=== PATIENT | female | born 1970 | race Caucasian/White ===

== ENCOUNTER → 2016-09-25 | Outpatient (CLI) | payer OTHER ==
[~2016-09-25] MED LIST: CHOL1CAP57 PO; GLC/500 PO; LORA-741 PO; MBC75 PO; OXYC-57 PO; SERT50TA PO; SIMV40TA2 PO; TRAM-10 PO
== END | disposition home or self-care (01) ==
LOC: C.PAPS 08:45
PROVIDERS: ATTEND Obstetrics & Gynecology
DX: Z01.419 Encounter for gynecological examination (general) (routine) without abnormal findings (principal)

== ENCOUNTER → 2016-09-25 | Outpatient (CLI) | payer OTHER ==
--- NOTE | 2016-09-25 15:58 | MAMMOGRAPHY REPORT ---
BILATERAL DIGITAL SCREENING MAMMOGRAM TOMOSYNTHESIS WITH CAD: 09/25/2016 CLINICAL HISTORY: Routine screening. Patient has no complaints. TECHNIQUE: Breast tomosynthesis in addition to standard 2D mammography was performed. Current study was also evaluated with a Computer Aided Detection (CAD) system. COMPARISON: Comparison is made to exams dated: 03/01/2015 mammogram, 01/04/2014 mammogram, 04/25/2012 mammogram, 04/24/2011 mammogram, 03/01/2010 mammogram, and 02/16/2010 mammogram - [facility]. BREAST COMPOSITION: There are scattered areas of fibroglandular density in both breasts. FINDINGS: No suspicious mass, architectural distortion or cluster of microcalcifications is seen. IMPRESSION: ACR BI-RADS CATEGORY 1: NEGATIVE There is no mammographic evidence of malignancy. A 1 year screening mammogram is recommended. The pa tient will receive written notification of the results. Approximately 10% of breast cancers are not detected with mammography. A negative mammographic report should not delay biopsy if a clinically suggestive mass is present. Natasha Sweeney M.D. ay/:09/25/2016 15:44:01 Retail Client Manager: Christa AU(R)(M)(BD), [facility] letter sent: Normal 1/2 BI-RADS Code: ACR BI-RADS Category 1: Negative
== END | disposition home or self-care (01) ==
LOC: C.MAMM 15:06
PROVIDERS: ATTEND Internal Medicine
DX: Z12.31 Encounter for screening mammogram for malignant neoplasm of breast (principal)

== ENCOUNTER → 2016-09-25 | Outpatient (CLI) | payer OTHER ==
[2016-09-27 16:23] LABS: CHLAMYDIA TRACH RNA*** NOT DETECTED (NOT DETECTED); GC (NEIS GONORRHOEAE)RNA** NOT DETECTED (NOT DETECTED)
== END | disposition home or self-care (01) ==
LOC: C.LABSPEC 17:32
PROVIDERS: ATTEND Obstetrics & Gynecology
DX: Z11.3 Encounter for screening for infections with a predominantly sexual mode of transmission (principal)

== ENCOUNTER → 2016-09-25 | Outpatient (CLI) | payer OTHER | END | disposition home or self-care (01) | LOC: C.LAB1850 15:38 | PROVIDERS: ATTEND Obstetrics & Gynecology | DX: Z11.3 Encounter for screening for infections with a predominantly sexual mode of transmission (principal) ==

== ENCOUNTER → 2017-10-22 | Outpatient (CLI) | payer OTHER ==
--- NOTE | 2017-10-23 13:51 | MAMMOGRAPHY REPORT ---
BILATERAL DIGITAL SCREENING MAMMOGRAM TOMOSYNTHESIS WITH CAD: 10/22/2017 CLINICAL HISTORY: Routine screening. TECHNIQUE: The study was acquired using full field digital technology and interpreted from soft copy. Breast tomosynthesis in addition to standard 2D mammography was performed. Current study was also ev aluated with a Computer Aided Detection (CAD) system. COMPARISON: Comparison is made to exams dated: 09/25/2016 mammogram, 03/01/2015 mammogram, 01/04/2014 mammogram, 04/25/2012 mammogram, 04/24/2011 mammogram, and 02/16/2010 mammogram - [facility]. BREAST COMPOSITION: There are scattered areas of fibroglandular density in both breasts. FINDINGS: The parenchymal pattern is unchanged. No developing mass, architectural distortion or cluster of susp icious microcalcifications is seen in either breast. IMPRESSION: ACR BI-RADS CATEGORY 2: BENIGN There is no mammographic evidence of malignancy. A 1 year screening mammogram is recommended.( [id number]) The patient will receive written notification of the results. Some breast cancers are not detected with mammography. A negative mammographic report should not jomar y biopsy if a clinically suggestive mass is present. Natasha Sweeney M.D. ay/:10/22/2017 21:38:00 Junior Financial Analyst: RT Ana Laura(Kristofer)(M), [facility] letter sent: Normal 1/2 BI-RADS Code: ACR BI-RADS Category 2: Benign
== END | disposition home or self-care (01) ==
LOC: C.MAMM 13:40
PROVIDERS: ATTEND Internal Medicine
DX: Z12.31 Encounter for screening mammogram for malignant neoplasm of breast (principal)

== ENCOUNTER → 2017-10-22 | Outpatient (CLI) | payer OTHER | END | disposition home or self-care (01) | LOC: C.PAPS 16:21 | PROVIDERS: ATTEND Obstetrics & Gynecology | DX: Z12.4 Encounter for screening for malignant neoplasm of cervix (principal) ==